=== PATIENT | female | born 1950 | race Caucasian/White ===

== ENCOUNTER 2025-07-02 15:55 | Emergency (ER) | payer MEDICARE, MEDICAID, SELFPAY ==
--- NOTE | ~2025-07-02 | XR_ITS ---
CLINICAL HISTORY: cough 1 view chest x-ray Comparison: None provided Findings: Lungs appear emphysematous. Scattered reticular densities throughout both lungs most conspicuous in the right midlung. Subtle density projecting over left lung base. No large pleural effusion. No pneumothorax. Normal heart size and central pulmonary vascularity. No acute soft tissue or osseous abnormality. Impression: 1. Background of COPD/emphysema. 2. Scattered reticular parenchymal densities, may represent chronic scarring/ fibroelastic parenchymal changes however possibility of multifocal infectious or inflammatory process not excluded when considering provided clinical history. This document has been electronically signed by: Dexter Lewis MD on 07/02/2025 23:49:23
--- NOTE | ~2025-07-02 | CT_ITS ---
CLINICAL HISTORY: diverticulitis CT abdomen and pelvis with contrast Comparison: None provided Findings: Moderate COPD/emphysema. Left basilar consolidation. Liver, spleen, adrenal glands, and pancreas are unremarkable. Cholecystectomy. Few small subcentimeter low-attenuation foci throughout both kidneys. No hydronephrosis. No free air or free fluid. Unremarkable urinary bladder. Fibroid uterus. Calcified but nonaneurysmal abdominal aorta. Nondistended stomach. Normal caliber small bowel. No obstruction. Extensive colonic diverticulosis without evidence of acute diverticulitis involving junction of the left descending and proximal sigmoid colon. No definite pathologically enlarged lymph nodes. No acute osseous abnormality. Impression: 1. Colonic diverticulosis without evidence of acute diverticulitis involving junction of the left descending and proximal sigmoid colon. No perforation or abscess. 2. Extensive pulmonary emphysema. 3. Left basilar consolidation concerning for pneumonia. 4. Additional findings as above. This document has been electronically signed by: Dexter Lewis MD on 07/03/2025 01:40:15
--- NOTE | 2025-07-02 16:22 | ED_ITS ---
HPI - General Adult General Chief complaint: Abdominal Pain Stated complaint: abd pain Time Seen by Provider: 07/02/25 22:52 Source: patient Limitations: no limitations History of Present Illness ED Provider: Emma Sebastian PA-C HPI narrative: 75-year-old female with a history of COPD on 3 L nasal cannula at baseline, recent COVID infection the beginning of June, constipation, who presents with left lower abdominal pain x1 day. Pain focal to left lower quadrant nonradiating, unable to describe the nature of her discomfort. Denies nausea vomiting diarrhea. The patient admits to being mildly constipated at this time. Denies distention, inability to pass flatus. Patient also has a wet cough, expelling sputum at times. She has had new symptoms for 2 days. Denies known fever. No chest pain or shortness of breath. Related Data Previous Rx's ?Medication ?Instructions ?Recorded amoxicillin 875 mg-potassium 1 tab PO Q12H #19 tabs clavulanate 125 mg tablet azithromycin 250 mg tablet 250 mg PO DAILY 4 days #4 t abs 07/03/25 Allergies Allergy/AdvReac Type Severity Reaction Status Date / Time imitatation crab Allergy Anaphylaxis Uncoded 07/02/25 16:25 Review of Systems 2 Review of Systems: Yes all other systems are reviewed and are negative Constitutional: Constitutional: Denies fatigue and Denies fever(s) Cardiovascular: Cardiovascular: Denies chest pain and Denies dyspnea Respiratory: Respiratory: Reports chest congestion, Reports cough, Denies dyspnea and Denies wheezing Gastrointestinal: Gastrointestinal: Reports abdominal pain, Reports constipation, Denies diarrhea, Denies nausea and Denies vomiting Endocrine: Endocrine: Denies fatigue Allergic/Immunologic: Allergic/Immunologic: Denies wheezing PMF Past Medical History Attestation statement: The following information was validated with the patient. Physical Exam ED Vital Signs: Vital Signs - 24 hr 07/02/25 16:23 07/02/25 21:50 07/02/25 22:47 Temperature 100.1 F 98.5 F 98.6 F Pulse Rate 78 86 71 Respiratory Rate 18 16 19 Blood Pressure 143/69 H 130/65 134/74 Pulse Oximetry 94 95 92 Oxygen Delivery Method Nasal Cannula Room Air Nasal Cannula Oxygen Flow Rate 2 07/03/25 02:51 Temperature 98.3 F Pulse Rate 85 Respiratory Rate 19 Blood Pressure 122/70 Pulse Oximetry 92 Oxygen Delivery Method Nasal Cannula Oxygen Flow Rate 2 BMI result Body Mass Index 24.5 Const Other: Alert well-appearing Orientation/consciousness: patient oriented x3 Resp Other: Nonlabored respirations, productive cough noted, faint crackles and coarse breath sounds posterior sullivan, no wheezing Cardio Other: Normal peripheral perfusion GI Other: Abdomen is soft, somewhat distended, mild to moderate tenderness suprapubic and left lower quadrant with mild involuntary guarding Skin Other: Warm dry no rash Neuro General: patient oriented x3, gait normal, no focal motor deficits and CN's II- XI intact bilaterally Psych Other: Cooperative Course Course Course Narrative: This is a rapid medical exam performed by Chanel Castillo NP: Additional HPI, ROS, PE not included below will be deferred to primary provider. Patient is a 75y/o F with pmhx COPD on 3lpm at baseline presenting with complaint of LLQ abdominal pain which woke her from sleep last night. Daughter states she typically has a high pain tolerance. Recently has been having very small BMs once a day and typically has normal BMs 2-3x/day. Recently treated for Covid with Paxlovid. Temp 100.1 in triage. PCP referred to ED for imaging. Plan: Labs, UA Reevaluation(s) Reevaluation #1: Offered hospital admission, the patient wants to be treated as an outpatient. This is fair, she is stable, she has no new oxygen requirement, her COVID infection is likely residual from the beginning of the month. Medications Administered Discontinued Medications Generic Name Dose Route Start Last Admin Trade Name Freq PRN Reason Stop Dose Admin Amoxicillin/Clavulanate Potassium 875 mg 07/03/25 02:13 07/03/25 02:45 Amoxicillin/Potassium Clav 875 Mg Tablet PO 07/03/25 02:14 875 mg ONCE ONE Administration Azithromycin 500 mg 07/03/25 02:13 07/03/25 02:45 Azithromycin 500 Mg Tablet PO 07/03/25 02:14 500 mg ONCE ONE Administration Iohexol 85 ml 07/03/25 00:15 07/03/25 00:18 Iohexol 350 Mg/Ml 100 Ml Infus..Btl IV 07/03/25 00:16 85 ml ONCE ONE Administration Medical Decision Making Medical Decision Making [facility] Narrative: 75-year-old female with a history of COPD on 3 L nasal cannula at baseline, recent COVID infection the beginning of June, constipation, who presents with left lower abdominal pain x1 day. Pain focal to left lower quadrant nonradiating, unable to describe the nature of her discomfort. Denies nausea vomiting diarrhea. The patient admits to being mildly constipated at this time. Denies distention, inability to pass flatus. Patient also has a wet cough, expelling sputum at times. She has had new symptoms for 2 days. Denies known fever. No chest pain or shortness of breath. Problem: Age, COPD History: Per patient I have considered the following differential diagnoses: Bowel obstruction, diverticulitis, UTI, pneumonia, viral syndrome, COPD exacerbation Plan: In regard to the abdominal pain, thought about bowel obstruction, she is objectively distended with constipation, however she is passing flatus she has no active vomiting, it is less likely. Also considering diverticulitis given distribution, we will be obtaining a CT scan. In regard to the new cough, she could have a pneumonia, this could be residual symptoms from her recent COVID infection, adding on a viral panel and a chest x-ray. I have independently reviewed the following tests: Labs: No leukocytosis, not anemic, no electrolyte abnormality, viral panel positive for COVID Chest x-ray: Findings: Lungs appear emphysematous. Scattered reticular densities throughout both lungs most conspicuous in the right midlung. Subtle density projecting over left lung base. No large pleural effusion. No pneumothorax. Normal heart size and central pulmonary vascularity. No acute soft tissue or osseous abnormality. Impression: 1. Background of COPD/emphysema. 2. Scattered reticular parenchymal densities, may represent chronic scarring/ fibroelastic parenchymal changes however possibility of multifocal infectious or inflammatory process not excluded when considering provided clinical history. CT abdomen and pelvis:Impression: 1. Colonic diverticulosis without evidence of acute diverticulitis involving junction of the left descending and proximal sigmoid colon. No perforation or abscess. 2. Extensive pulmonary emphysema. 3. Left basilar consolidation concerning for pneumonia. 4. Additional findings as above. Differential Diagnosis Differential Diagnoses: The differential diagnosis associated with the presentation includes See medical decision-making Admission/Observation Consideration of admission/observation: Escalation of care including admission/observation considered Not applicable Lab Data MDM Lab Attestation statement: I reviewed the patient's lab results. 07/02/25 16:51 07/02/25 16:51 Labs: Lab Results 07/02/25 07/02/25 07/03/25 Range/Units 16:51 23:14 00:21 WBC 9.7 (4.8-10.8) X10*3/uL RBC 3.45 L (4.20-5.50) X10*6/uL Hgb 11.4 L (12.0-16.0) g/dl Hct 33.3 L (37.0-47.0) % MCV 96.5 (80.0-98.0) fL MCH 33.0 (27.0-33.0) pg MCHC 34.2 (31.0-35.0) g/dl RDW 13.2 (11.0-16.0) % Plt Count 249 (160-400) X10*3/uL MPV 9.9 (9.4-12.3) fL Immature Gran % (Auto) 0.2 (0.0-0.4) % Neut % (Auto) 71.7 (45-73) % Lymph % (Auto) 20.6 (20-40) % [place] % (Auto) 5.4 (2-11) % Eos % (Auto) 1.7 (0-4) % Baso % (Auto) 0.4 (0-2) % Lymph # (Auto) 2.0 (1.2-4.9) X10*3/uL [place] # (Auto) 0.5 (0.1-1.2) X10*3/uL Eos # (Auto) 0.2 (0.0-0.4) X10*3/uL Baso # (Auto) 0.0 (0.0-0.2) X10*3/uL Abs Immat Gran (auto) 0.02 (0.00-0.03) X10*3/uL Absolute Neuts (auto) 7.0 (2.0-8.3) x10*3/uL Absolute Nucleated RBC 0.000 (0.0-0.012) X10*3/uL Nucleated RBC % (auto) 0.0 (0.0-0.2) /100WBC Sodium 133 L (135-145) mmol/L Potassium 4.1 (3.3-5.1) mmol/L Chloride 100 (96-108) mmol/L Carbon Dioxide 25 (22-29) mmol/L Anion Gap 12 (12-20) BUN 21 H (9-16) mg/dL Creatinine 1.04 (0.5-1.4) mg/dL Estim Creat Clear Calc 39.1 Estimated GFR 51 Random Glucose 100 (60-115) mg/dL Calcium 9.1 (8.4-10.2) mg/dL Magnesium 1.8 (1.6-2.6) mg/dL Total Bilirubin 0.5 (0.0-1.0) mg/dL AST 24 (5-31) U/L ALT 12 (0-31) U/L Alkaline Phosphatase 89 (39-117) U/L Total Protein 7.6 (6.5-8.0) g/dL Albumin 4.2 (3.5-5.0) g/dL Urine Color Yellow Urine Appearance Clear Urine pH 5.5 (5.0-9.0) Ur Specific [place] 1.015 (1.005-1.025) Urine Protein Negative (Neg-Trace) mg/dL Urine Glucose (UA) Negative (Negative) mg/dL Urine Ketones Negative (Negative) mg/dL Urine Blood Negative (Negative) Urine Nitrite Negative (Negative) Ur Leukocyte Esterase Trace H (Negative) Urine RBC 0-2 (0-2) /HPF Urine WBC 6-10 H (0-5) /HPF Ur Squamous Epith Cells 0-2 (0-2) /HPF Urine Bacteria None Seen (None Seen) Hyaline Casts 0-2 (0-2) /LPF Influenza Type A (PCR) NEGATIVE (Negative) Influenza Type B (PCR) NEGATIVE (Negative) RSV RNA Qual (PCR) NEGATIVE (Negative) SARS-CoV-2 RNA (RT-PCR) POSITIVE A (Negative) Radiology Impression Discussion of test interpretation with radiology: I have reviewed the radiologist's reading. Discharge Plan Discharge Clinical Impression: Pneumonia, Constipation, COVID-19 Patient Disposition: Home, Self-Care Instructions: Constipation (ED), Community Acquired Pneumonia (ED), COVID-19 (Coronavirus Disease 2019) (ED) Additional Instructions: The CT scan of the abdomen and pelvis did not reveal an acute infection, you are constipated. You do however have pneumonia, and you are still testing positive for COVID. There is no way to tell if this is old or new viral infection. See home care instructions. Take the Augmentin as directed complete the course of antibiotic, take the azithromycin as directed, complete the course of this antibiotic. You may still require [id number] Colace, this is a stool softener. And kqrf-aef-[id number] MiraLax, to be used 1 to 3 times a day, to help alleviate your current stool burden. However, antibiotics have the propensity to cause diarrhea, which will soften your stool. Follow up with your primary care provider as needed. Prescriptions: New amoxicillin-pot clavulanate 875-125 mg tablet 1 tab PO Q12H Qty: 19 0RF azithromycin 250 mg tablet 250 mg PO DAILY 4 Days Qty: 4 0RF Rx Instructions: start on day 2 of therapy Interventions: ED Discharge Assessment Last Done: 07/03/25 03:11 Print Language: French
[2025-07-02 16:23] VITALS: BP 143/69; PULSE 78; RESP 18; TEMP 37.8; O2SAT 94; BMI 24.5
--- OUTSIDE RECORDS SUMMARY | 2025-07-02 17:00 | XMS_ITS | Clinical Summary ---
Author Organization [facility] Address [address] [place] [phone] Phone Care Team Providers Care Global Risk Management Director Name Role Phone Dru Green MD Primary Care Provider [phone] Medications albuterol HFA (PROAIR HFA ; PROVENTIL HFA ; VENTOLIN HFA) 90 mcg/actuation inhaler Inhale 2 puffs by mouth 4 (four) times a day. 12/06/19 25 Active cefpodoxime (VANTIN) 100 mg tablet Take 1 tablet (100 mg total) by mouth every 12 (twelve) hours. with food 01/04/20 25 Active cetirizine (ZyrTEC) 10 mg tablet Take 1 tablet (10 mg total) by mouth 1 (one) time each day. 03/22/20 21 Active EPINEPHrine (EpiPen 2-Anatoly) 0.3 mg/0.3 mL injection Inject 0.3 mL (0.3 mg total) into the thigh 1 (one) time. 09/07/20 21 Active furosemide (LASIX) 20 mg tablet Take 1 tablet (20 mg total) by mouth 2 (two) times a day if needed. for constipation 10/03/20 24 Active levalbuterol (XOPENEX) 1.25 mg/3 mL nebulizer solution Take 1 ampule by nebulization 4 (four) times a day if needed. 03/08/20 25 Active montelukast (SINGULAIR) 10 mg tablet Take 1 tablet (10 mg total) by mouth at bedtime. 12/27/19 25 Active Trelegy Ellipta 100-62.5-25 mcg inhaler Inhale 1 puff (100 mcg total) by mouth 1 (one) time each day. 60 each 11 05/08/20 25 Active doxycycline (VIBRAMYCIN) 100 mg capsule Take 1 capsule (100 mg total) by mouth 2 (two) times a day. 04/06/20 25 Active azithromycin (Zithromax) 500 mg tablet Take 1 tablet (500 mg total) by mouth 1 (one) time each day for 28 days. 14 tablet 06/14/20 25 025 Active albuterol 2.5 mg /3 mL (0.083 %) nebulizer solution Take 3 mL (2.5 mg total) by nebulization every 6 (six) hours if needed for wheezing. 120 mL 11 06/19/20 25 Active albuterol 2.5 mg /3 mL (0.083 %) nebulizer solutionIndicat ions:Pulmonary emphysema, unspecified emphysema type Take 3 mL (2.5 mg total) by nebulization every 6 (six) hours if needed for wheezing. 270 mL 5 06/21/20 25 Active albuterol 2.5 mg /3 mL (0.083 %) nebulizer solution Take 3 mL (2.5 mg total) by nebulization every 6 (six) hours if needed for wheezing. 250 mL 3 06/26/20 25 Active albuterol 2.5 mg /3 mL (0.083 %) nebulizer solution Take 3 mL (2.5 mg total) by nebulization every 6 (six) hours if needed for wheezing. 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 V24, [facility] V28) 2024 Chronic hypoxemic respirator y failure ([facility] V24, [facility] V28) 04/07/2025 Class 1 obesity 04/07/2025 Emphysema of lung ([facility] V24, [facility] V28) Hypoxia 04/07/2025 Obstructive sleep apnea 04/07/2025 Tubular adenoma of colon 04/07/2025 Encounters Date Type Department Care Team Description 06/26/2025 Telephone Pulmonology - [address] [place] [phone] Giorgio Nguyễn MD 06/[facility] [address] [phone] Giorgio Nguyễn MD 06/21/2025 [facility] [address] [phone] Giorgio Nguyễn MD 06/19/2025 [facility] [address] [phone] Giorgio Nguyễn MD 06/13/[address] [phone] Giorgio Nguyễn MD from Last 3 Months Social History Tobacco Use Types Packs/Day Years Used Date Smoking Tobacco: Never Assessed Comments Unknown Sex and Gender Information Value Date Recorded Sex Assigned at Not on file Legal Sex Female 6:12 AM EST Gender Identity Not on file Sexual Orientation Not on file Plan of Treatment Upcoming Encounters Date Type Department Care Team ([facility] Contact Info) Description 07/12/2025 1:00 PM EDT [facility] [address] [phone] Giorgio Nguyễn MD [address] [place] [phone] Health Maintenance Due Date Last Done Comments DTaP,Tdap,and Td Vaccines (1 - Tdap) 1967 Zoster Vaccines (1 of 2) 1998 RSV Immunization Adult Patients (1 - 1-dose 75+ series) 2023 Falls Risk Assessment 07/19/2024 Hepatitis C Screening 07/19/2024 Medicare Annual Wellness Visit 07/19/2024 Osteoporosis Screening (Bone Density Screening) 07/19/2024 Social Influencers of Health Screening 07/19/2024 Depression Screening 10/12/2024 COVID-19 Vaccine ( season) 2025 08/28/2023, 10/25/2021, 02/21/2021, Additional history exists Influenza Vaccine (#1) 2025 , 07/15/2023, 07/14/2022, Additional history exists Pneumococcal Vaccine: 50+ Years Completed 02/12/2023 HIB Vaccines Aged Out No longer eligi ble based on patient's age to complete this topic HPV Vaccines Aged Out No longer eligi ble based on patient's age to complete this topic Hepatitis A Vaccines Aged Out No long er eligible based on patient's age to complete this topic Hepatitis B Vaccines Aged Out No long er eligible based on patient's age to complete this topic IPV Vaccines Aged Out No longer eligi ble based on patient's age to complete this topic MMR Vaccines Aged Out No longer eligi ble based on patient's age to complete this topic Meningococcal ACWY Vaccine Aged Out N o longer eligible based on patient's age to complete this topic Meningococcal B Vaccine Aged Out No l onger eligible based on patient's age to complete this topic RSV Immunization Patients Under 20 months Aged Out No longer eligible based on patient's age to complete this topic Varicella Vaccines Aged Out No longer eligible based on patient's age to complete this topic Insurance [place] Advance Directives Documents on File Type Date Recorded 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
[2025-07-02 17:01] LABS: MANUAL DIFF FLAG NO
[2025-07-02 17:03] LABS: Hematocrit 33.3 % (37.0-47.0); Hemoglobin 11.4 g/dl (12.0-16.0); Imm Gran Abs Auto 0.02 X10*3/uL (0.00-0.03); Imm Gran Pct Auto 0.2 % (0.0-0.4); Lymphocytes Absolute Auto 2.0 X10*3/uL (1.2-4.9); Mean Corpuscular HGB Conc 34.2 g/dl (31.0-35.0); Mean Corpuscular Hemoglobin 33.0 pg (27.0-33.0); Mean Corpuscular Volume 96.5 fL (80.0-98.0); NRBC Abs Auto 0.000 X10*3/uL (0.0-0.012); NRBC Pct Auto 0.0 /100WBC (0.0-0.2); Platelet Count 249 X10*3/uL (160-400); Red Blood Count 3.45 X10*6/uL (4.20-5.50); White Blood Count 9.7 X10*3/uL (4.8-10.8)
[2025-07-02 17:16] LABS: Alanine Aminotransferase 12 U/L (0-31); Albumin Level 4.2 g/dL (3.5-5.0); Alkaline Phosphatase 89 U/L (39-117); Anion Gap 12 (12-20); Aspartate Amino Transferase 24 U/L (5-31); Blood Urea Nitrogen 21 mg/dL (9-16); Calcium 9.1 mg/dL (8.4-10.2); Carbon Dioxide 25 mmol/L (22-29); Chloride 100 mmol/L (96-108); Creatinine Clr Calc Pharmacy 39.1; Estimated Glomerular Filt Rate 51; Magnesium 1.8 mg/dL (1.6-2.6); Potassium 4.1 mmol/L (3.3-5.1); Sodium 133 mmol/L (135-145); Total Protein 7.6 g/dL (6.5-8.0)
[2025-07-02 21:50] VITALS: BP 130/65; PULSE 86; RESP 16; TEMP 36.9; O2SAT 95
--- NOTE | 2025-07-02 21:52 | PC.NURSE ---
Pt reassessed VSS. endorsing 9/10 pain- offered tylenol for pain, pt declined
[2025-07-02 22:47] VITALS: BP 134/74; PULSE 71; RESP 19; TEMP 37; O2SAT 92
[2025-07-03 00:05] LABS: Resp Syncy Virus RNA Qual PCR NEGATIVE (Negative); SARS COV2 PCR INHOUSE POSITIVE (Negative)
[2025-07-03] MEDS: iohexoL 350 MG/ML 100 ML INFUS..BTL 85 ML IV (00:18)
[2025-07-03 00:29] LABS: Appearance Urine Clear; Glucose Urine UA Negative (Negative); PH 5.5 (5.0-9.0); Specific Gravity - Urine 1.015 (1.005-1.025); UMIC TRIGGER UACC YES
[2025-07-03 01:48] LABS: UACC Culture Trigger YES
[2025-07-03 02:51] VITALS: BP 122/70; PULSE 85; RESP 19; TEMP 36.8; O2SAT 92
[2025-07-03 03:11] VITALS: BP 122/70; PULSE 85; RESP 19; TEMP 36.8; O2SAT 92
== END 2025-07-03 03:13 | disposition home or self-care (01) ==
PROVIDERS: Physician Assistant Medical; Registered Nurse Emergency; Emergency Provider Emergency Medicine; PCP Internal Medicine
DX: J18.9 Pneumonia, unspecified organism (principal); U07.1 COVID-19; K59.00 Constipation, unspecified; Z79.899 Other long term (current) drug therapy
CPT/HCPCS: 36415; 71045; 74177; 80053; 81001; 83735; 85025; 87086; 87637; 99284; Q9967

== ENCOUNTER → 2025-07-02 22:58 | Outpatient (BNV) | payer MEDICARE, MEDICAID, SELFPAY | PROVIDERS: Emergency Provider Emergency Medicine; PCP Internal Medicine; Visit Provider Radiology Diagnostic Radiology | DX: R05.9 Cough, unspecified (principal) | CPT/HCPCS: 71045 ==

== ENCOUNTER → 2025-07-03 | Outpatient (BNV) | payer MEDICARE, MEDICAID, SELFPAY | PROVIDERS: Emergency Provider Emergency Medicine; PCP Internal Medicine; Visit Provider Radiology Diagnostic Radiology | DX: K57.30 Diverticulosis of large intestine without perforation or abscess without bleeding (principal); J43.8 Other emphysema; R91.8 Other nonspecific abnormal finding of lung field | CPT/HCPCS: 74177 ==